=== PATIENT | male | born 1925 | race Caucasian/White ===

== ENCOUNTER 2016-11-10 22:32 | Emergency (ER) | payer OTHER ==
[2016-11-10 22:47] VITALS: RESP 16; TEMP 97.9
--- NOTE | 2016-11-10 23:11 | EDPHY ---
H & P Stated Complaint: HIT HEAD ON WALL. NO LOC NO C/O PAIN Time Seen by Provider: 11/10/16 22:50 HPI/ROS: HPI The patient presents with a head injury which occurred about 1 hour prior to presentation. He suffers from dementia, however according to his he was downstairs and she was up stairs, she heard a loud Bang like a door shutting and she ran downstairs. It appeared that the patient had hit his head quite hard on AA overhead cabinet. He did not lose consciousness. She is a retired RN and did a brief neurologic exam which was normal. Vital signs were unremarkable. The patient currently does not have any complaints. He denies headache, nausea or vomiting.. REVIEW OF SYSTEMS Constitutional: No fever, no chills. Eyes: No discharge. ENT: No sore throat. Cardiovascular: No chest pain, no palpitations. Respiratory: No cough, no shortness of breath. Gastrointestinal: No abdominal pain, no vomiting. Genitourinary: No hematuria. Musculoskeletal: No back pain. Skin: No rashes. Neurological: No headache. PMHx: Dementia, takes aspirin 81 mg Soc Hx: Lives at home with his PHYSICAL General Appearance: Alert, no distress Eyes: Pupils equal and round no pallor or injection ENT, Mouth: Mucous membranes moist Respiratory: There are no retractions, lungs are clear to auscultation Cardiovascular: Regular rate and rhythm Gastrointestinal: Abdomen is soft and non-tender, no masses, bowel sounds normal Neurological: A&O, cranial nerves 2-12 intact, 5/5 strength in upper and lower extremities which is symmetric Skin: Warm and dry, no rashes Musculoskeletal: Neck is supple non tender Extremities: symmetrical, full range of motion Psychiatric: Patient is oriented X 3, there is no agitation Source: Patient, Family - Personal History Current Tetanus/Diphtheria Vaccine: Yes Current Tetanus Diphtheria and Acellular Pertussis (TDAP): Yes - Medical/Surgical History Hx Asthma: No Hx Chronic Respiratory Disease: No Hx Diabetes: Yes Hx Cardiac Disease: No Hx Renal Disease: No Hx Cirrhosis: No Hx Alcoholism: No Hx HIV/AIDS: No Hx Splenectomy or Spleen Trauma: No Other PMH: DM, Enlarged prostate, DEMENTIA - Social History Smoking Status: Never smoked Constitutional: Initial Vital Signs Temperature (C) 36.6 C 11/10/16 22:40 Heart Rate 75 11/10/16 22:40 Respiratory Rate 16 11/10/16 22:40 Blood Pressure 170/89 H 11/10/16 22:40 O2 Sat (%) 93 11/10/16 22:40 O2 Delivery Mode Room Air Allergies/Adverse Reactions: No Known Allergies Allergy (Unverified 11/10/16 22:47) Home Medications: Medication Instructions Recorded Aspirin 81mg (OTC) 04/29/15 glipiZIDE [Glipizide ER] 04/29/15 Medical Decision Making - Diagnostics Imaging: CT head noncontrast shows no intracranial hemorrhage, discussed with Dr. Ortiz of Radiology. ED Course/Re-evaluation: I re-evaluated the patient, he continues to feel well, his CT scan shows no acute findings. Given that he is just on the baby aspirin, I feel he is suitable for discharge and will not require admission for continued monitoring. He will be discharged from the emergency room with his . Differential Diagnosis: This is an 89-year-old male with dementia, diabetes, who presents from home with head injury which occurred prior to arrival. He is on a baby aspirin and cannot recall the details of his injury, however this is normal for him because of his dementia. Now denies any complaints. Differential diagnosis includes intracranial hemorrhage, concussion, scalp hematoma. Departure - Departure Disposition: Home, Routine, Self-Care Clinical Impression: Head injury Qualifiers: Encounter type: initial encounter Qualified Code(s): S09.90XA - Unspecified injury of head, initial encounter Condition: Good Instructions: Head Injury (ED) Additional Instructions: The CT scan of your head was normal. You should return to the emergency room if your worse in any way. Referrals: [facility] [Other] - As per Instructions
[2016-11-11 00:30] VITALS: BP 136/88; PULSE 76; O2SAT 96
== END 2016-11-11 00:29 | disposition home or self-care (01) ==
DX: S09.90XA Unspecified injury of head, initial encounter (principal); E11.9 Type 2 diabetes mellitus without complications; Z79.82 Long term (current) use of aspirin; W22.8XXA Striking against or struck by other objects, initial encounter; Y93.89 Activity, other specified